=== PATIENT | male | born 1995 | race African-American/Black ===

== ENCOUNTER 2017-06-30 19:35 | Emergency (ER) | payer SELFPAY ==
[2017-06-30 20:38] LABS: ADD MAN DIFF? YES; BASO # 0.1 x10^3/uL (0.0-0.2); BASO % 1 % (0-3); EOS # 0.1 x10^3/uL (0.0-0.7); EOS % 0 % (0-3); HEMATOCRIT 45.4 % (39.0-53.0); HEMOGLOBIN 15.6 g/dL (13.0-17.5); LYMPH # 1.1 x10^3/uL (1.0-4.8); LYMPH % 7 % (24-48); MEAN CORPUSCULAR HEMOGLOBIN 31 pg (25-35); MEAN CORPUSCULAR HGB CONC 34 g/dL (31-37); MEAN CORPUSCULAR VOLUME 91 fL (79-100); MONO % 7 % (0-9); NEUT % 85 % (31-73); PLATELET COUNT 242 x10^3/uL (140-400); RED BLOOD COUNT 4.98 x10^6/uL (4.30-5.70); RED CELL DISTRIBUTION WIDTH 12.4 % (11.5-14.5); WHITE BLOOD COUNT 15.3 x10^3/uL (4.0-11.0)
[2017-06-30 20:43] LABS: ANION GAP 11 (6-14); BLOOD UREA NITROGEN 5 mg/dL (8-26); BUN/CREATININE RATIO 5 (6-20); CALCIUM 9.3 mg/dL (8.5-10.1); CARBON DIOXIDE 28 mmol/L (21-32); CHLORIDE 103 mmol/L (98-107); CREATININE 1.1 mg/dL (0.7-1.3); GFR 102.2; GLUCOSE 115 mg/dL (70-99); POTASSIUM 3.4 mmol/L (3.5-5.1); SODIUM 142 mmol/L (136-145)
[2017-06-30] MEDS: IV NORMAL SALINE 1000ML BAG 1,000 ML IV (20:46)
[2017-06-30] MEDS: ONDANSETRON PF 4 MG/2 ML VIAL. IV (20:47)
[2017-06-30] MEDS: fentaNYL PF VIAL 100 MCG/2 ML VIAL IV (20:48)
[2017-06-30] MEDS: PENICILLIN G BENZATHINE LA 1,200,000 UNIT/2 ML DISP.SYRIN. IM (20:48)
[2017-06-30 20:49] LABS: ALBUMIN 4.3 g/dL (3.4-5.0); ALBUMIN/GLOBULIN RATIO 1.2 (1.0-1.7); ALK PHOS 56 U/L (46-116); ALT (SGPT) 18 U/L (16-63); AST (SGOT) 13 U/L (15-37); TOTAL BILIRUBIN 0.5 mg/dL (0.2-1.0); TOTAL PROTEIN 7.8 g/dL (6.4-8.2)
[2017-06-30 20:52] LABS: BILIRUBIN,URINE NEGATIVE (NEG); CLARITY,URINE CLEAR; COLOR,URINE YELLOW; GLUCOSE,URINE NEGATIVE (NEG); NITRITE,URINE NEGATIVE (NEG); PH,URINE 7.5; PROTEIN,URINE NEGATIVE (NEG-TRACE)
[2017-06-30 20:57] LABS: BACTERIA,URINE 0 /HPF (0-FEW); RBC,URINE 0 /HPF (0-2); WBC,URINE OCC /HPF (0-4)
[2017-06-30 20:58] LABS: SQUAMOUS EPITHELIAL CELL,UR OCC /LPF
[2017-06-30 20:59] LABS: INFLUENZA A PATIENT NEGATIVE (NEGATIVE); INFLUENZA B PATIENT NEGATIVE (NEGATIVE); OBC FLU VALID
[2017-06-30 21:10] LABS: % ATYL 2 % (0-0); % BANDS 5 % (0-9); % EOS 1 % (0-5); % LYMPHS 1 % (24-48); % MONOS 9 % (0-10); % SEGS 82 % (35-66); PLT ESTIMATE ADEQUATE (ADEQUATE)
[2017-07-01 08:45] LABS: NEGATIVE OBC STREP NEG; POSITIVE OBC STREP POS
== END 2017-06-30 21:32 | disposition home or self-care (01) ==
LOC: ER 19:35
DX: J02.0 Streptococcal pharyngitis (principal)
CPT/HCPCS: 36415; 80053; 81001; 85007; 85025; 87804; 87804-59; 87880; 96361; 96372; 96374; 96375; 99284-25; J0561; J2405; J3010; J7030

== ENCOUNTER 2020-10-19 23:19 | Emergency (ER) | payer SELFPAY ==
[~2020-10-19] VITALS: Ht 175.3 cm; Wt 60.0 kg
[~2020-10-19 23:19] MED LIST: CIPR500T94 PO
--- NOTE | 2020-10-19 23:49 | ED.ADGEN ---
Past Medical History Past Medical History: No Pertinent History Past Surgical History: No Surgical History Smoking Status: Current Every Day Smoker Alcohol Use: Occasionally Drug Use: None General Adult EDM: Chief Complaint: MULTIPLE COMPLAINTS HPI: HPI: Patient is a 25 year old male coming in for 2 weeks of diarrhea and abdominal cramping. Is had some nausea but no vomiting denies any fevers. Has not seen his primary care doctor and has not tried any [id number] medications. Patient states he is having brown stools without any blood or mucus. Denies any known food allergies. No changes in urination. Review of Systems: Review of Systems: All other systems within normal limits except for as noted in the HPI Current Medications: Current Medications Medications (Trade) Dose Ordered Sig/Kane Start Time Stop Time Status Last Admin Dose Admin Info (CONTRAST GIVEN -- Rx MONITORING) 1 each PRN DAILY PRN 10/20/20 01:00 10/22/20 00:59 Iohexol (Omnipaque 300 Mg/ml) 75 ml 1X ONCE 10/20/20 00:45 10/20/20 00:46 DC 10/20/20 01:03 75 ML Allergies: Allergies: Allergies Coded Allergies Type Severity Reaction Last Updated Verified No Known Drug Allergies 01/13/15 No Physical Exam: PE: Constitutional: Well developed, well nourished, no acute distress, non-toxic appearance. [] HENT: Normocephalic, atraumatic, bilateral external ears normal, nose normal. [] Eyes: PERRLA, conjunctiva normal, no discharge. [] Neck: No rigidity, supple, no stridor. [] Cardiovascular: Regular rate and rhythm, brisk cap refill [] Lungs & Thorax: Non labored symmetric respirations, no tachypnea or respiratory distress [] Abdomen: Soft, nondistended, low abdominal tenderness no guarding. Skin: Warm, dry, no erythema, no rash. [] Back: Unremarkable Extremities: No deformities, range of motion grossly intact, no lower extremity edema [] Neurologic: Alert and oriented X 3, no focal deficits noted. [] Psychologic: Affect normal, judgement normal, mood normal. [] Current Patient Data: Labs: Laboratory Tests Test 10/20/20 00:05 White Blood Count 8.6 x10^3/uL (4.0-11.0) Red Blood Count 4.62 x10^6/uL (4.30-5.70) Hemoglobin 14.6 g/dL (13.0-17.5) Hematocrit 43.0 % (39.0-53.0) Mean Corpuscular Volume 93 fL (79-100) Mean Corpuscular Hemoglobin 32 pg (25-35) Mean Corpuscular Hemoglobin Concent 34 g/dL (31-37) Red Cell Distribution Width 12.7 % (11.5-14.5) Platelet Count 238 x10^3/uL (140-400) Neutrophils (%) (Auto) 51 % (31-73) Lymphocytes (%) (Auto) 34 % (24-48) Monocytes (%) (Auto) 8 % (0-9) Eosinophils (%) (Auto) 6 % (0-3) H Basophils (%) (Auto) 1 % (0-3) Neutrophils # (Auto) 4.4 x10^3/uL (1.8-7.7) Lymphocytes # (Auto) 2.9 x10^3/uL (1.0-4.8) Monocytes # (Auto) 0.7 x10^3/uL (0.0-1.1) Eosinophils # (Auto) 0.5 x10^3/uL (0.0-0.7) Basophils # (Auto) 0.1 x10^3/uL (0.0-0.2) Urine Collection Type Unknown Urine Color Yellow Urine Clarity Cloudy Urine pH 7.0 (<5.0-8.0) Urine Specific [place] 1.025 (1.000-1.030) Urine Protein Negative mg/dL (NEG-TRACE) Urine Glucose (UA) Negative mg/dL (NEG) Urine Ketones (Stick) Negative mg/dL (NEG) Urine Blood Negative (NEG) Urine Nitrite Negative (NEG) Urine Bilirubin Negative (NEG) Urine Urobilinogen Dipstick 1.0 mg/dL (0.2 mg/dL) Urine Leukocyte Esterase Trace (NEG) Urine RBC 0 /HPF (0-2) Urine WBC 5-10 /HPF (0-4) Urine Squamous Epithelial Cells Occ /LPF Urine Amorphous Sediment Present /HPF Urine Bacteria 0 /HPF (0-FEW) Urine Mucus Mod /LPF Sodium Level 144 mmol/L (136-145) Potassium Level 4.5 mmol/L (3.5-5.1) Chloride Level 107 mmol/L (98-107) Carbon Dioxide Level 32 mmol/L (21-32) Anion Gap 5 (6-14) L Blood Urea Nitrogen 16 mg/dL (8-26) Creatinine 1.1 mg/dL (0.7-1.3) Estimated GFR (Cockcroft-Gault) 99.5 BUN/Creatinine Ratio 15 (6-20) Glucose Level 93 mg/dL (70-99) Calcium Level 9.2 mg/dL (8.5-10.1) Total Bilirubin 0.3 mg/dL (0.2-1.0) Aspartate Amino Transferase (AST) 17 U/L (15-37) Alanine Aminotransferase (ALT) 26 U/L (16-63) Alkaline Phosphatase 54 U/L (46-116) Total Protein 7.0 g/dL (6.4-8.2) Albumin 3.8 g/dL (3.4-5.0) Albumin/Globulin Ratio 1.2 (1.0-1.7) Lipase 71 U/L (73-393) L Laboratory Tests 10/20/20 00:05 Laboratory Tests 10/20/20 00:05 Vital Signs: Vital Signs Date Time Temp Pulse Resp B/P (MAP) Pulse Ox O2 Delivery O2 Flow Rate FiO2 10/20/20 01:09 62 18 128/70 (89) 98 Room Air 10/19/20 23:20 98.6 98.6 EKG: EKG: [] Heart Score: C/O Chest Pain: No Risk Factors: Risk Factors: DM, Current or recent (<one month) smoker, HTN, HLP, family history of CAD, obesity. Risk Scores: Score 0 - 3: 2.5% MACE over next 6 weeks - Discharge Home Score 4 - 6: 20.3% MACE over next 6 weeks - Admit for Clinical Observation Score 7 - 10: 72.7% MACE over next 6 weeks - Early Invasive Strategies Radiology/Procedures: Radiology/Procedures: [][facility] [address] [place] [address] IMAGING REPORT Signed PATIENT: YOLANDA CERVANTES ACCOUNT: [id number] : 07/20/1957 LOCATION: ER AGE: 63 SEX: F EXAM STATUS: REG ER ORD. PHYSICIAN: OSCAR PRINCE MD REASON: left flank pain, stone study, hematuria PROCEDURE: CT ABDOMEN PELVIS WO CONTRAST INDICATION: Reason: left flank pain, stone study, hematuria / Spl. Instructions: / History: . COMPARISON: None. TECHNIQUE: Axial CT images obtained through the abdomen and pelvis without contrast. One or more of the following individualized dose reduction techniques were utilized for this examination: 1. Automated exposure control; 2. Adjustment of the mA and/or kV according to patient size; 3. Use of iterative reconstruction technique. FINDINGS: Gastric band. Calcific atherosclerosis. Urinary bladder is well distended. Liver is low density. Nonspecific but can be seen with fatty infiltration. Prom inent in size. There is some heterogeneity within with a relative higher density region within the right lobe inferiorly measuring up to 3 cm. No peripancreatic fluid collection. Spleen unremarkable. Mild left-sided hydronephrosis and hydroureter with suspected 5 mm left distal ureter stone. Uterus is visualized. Mild prominence right extrarenal pelvis. Suspected high density lesion right kidney measuring approximately 12 mm. Colonic diverticulosis. No periappendiceal inflammatory changes. No dilated loops of bowel to suggest obstruction. There are some prominent lymph nodes at the right side of the abdomen. Degenerative changes of the spine with multilevel central canal and neural foraminal stenosis. Degenerative changes the hips. IMPRESSION: * Left-sided hydronephrosis with distal ureter stone. There are additional nonobstructive left renal stones. * High density right renal lesion. Most commonly from causes such as hemorrhagic cyst but nonemergent ultrasound could further evaluate. * Liver is low density which can be seen with fatty infiltration. * Relative high density region within the right lobe the liver which could be from focal fatty sparing but may be helpful to obtain a follow-up nonemergent CT or MRI liver protocol to ensure there is not a lesion in the area. Electronically signed by: Mikaela Story MD (10/20/2020 1:23 AM) [id number] DICTATED and SIGNED BY: MIKAELA STORY MD DATE: 10/20/20 [id number] Course & Med Decision Making: Course & Med Decision Making Pertinent Labs and Imaging studies reviewed. (See chart for details) [] Dragon Disclaimer: Dragon Disclaimer: This electronic medical record was generated, in whole or in part, using a voice recognition dictation system. Departure Departure Impression: Primary Impression: Loose stools Disposition: HOME / SELF CARE / HOMELESS Condition: STABLE Referrals: NO PCP (PCP) Patient Instructions: Diet for Diarrhea, Adult Additional Instructions: Your stool study is pending and will be resulted in 1 to 3 days, you will be called if any positive results. Use soluble fiber supplements and probiotics to help slow bowel movements. Scripts Ondansetron (ONDANSETRON ODT) 4 Mg Tab.rapdis 1 TAB PO PRN Q6-8HRS PRN for NAUSEA for 3 Days, #10 TAB Prov: OSCAR PRINCE MD 10/20/20 OSCAR PRINCE MD Oct 19, 2020 23:49
[2020-10-20 00:20] LABS: BASO # 0.1 x10^3/uL (0.0-0.2); BASO % 1 % (0-3); BILIRUBIN,URINE NEGATIVE (NEG); CLARITY,URINE CLOUDY; COLOR,URINE YELLOW; EOS # 0.5 x10^3/uL (0.0-0.7); EOS % 6 % (0-3); HEMOGLOBIN 14.6 g/dL (13.0-17.5); LYMPH # 2.9 x10^3/uL (1.0-4.8); LYMPH % 34 % (24-48); MEAN CORPUSCULAR HEMOGLOBIN 32 pg (25-35); MEAN CORPUSCULAR HGB CONC 34 g/dL (31-37); MEAN CORPUSCULAR VOLUME 93 fL (79-100); MONO # 0.7 x10^3/uL (0.0-1.1); MONO % 8 % (0-9); NEUT # 4.4 x10^3/uL (1.8-7.7); NEUT % 51 % (31-73); NITRITE,URINE NEGATIVE (NEG); PLATELET COUNT 238 x10^3/uL (140-400); PROTEIN,URINE NEGATIVE (NEG-TRACE); RED BLOOD COUNT 4.62 x10^6/uL (4.30-5.70); RED CELL DISTRIBUTION WIDTH 12.7 % (11.5-14.5); WHITE BLOOD COUNT 8.6 x10^3/uL (4.0-11.0)
[2020-10-20 00:29] LABS: CALCIUM 9.2 mg/dL (8.5-10.1); CREATININE 1.1 mg/dL (0.7-1.3); GFR 99.5; POTASSIUM 4.5 mmol/L (3.5-5.1)
[2020-10-20 00:34] LABS: RBC,URINE 0 /HPF (0-2)
[2020-10-20 00:35] LABS: ALBUMIN 3.8 g/dL (3.4-5.0); ALBUMIN/GLOBULIN RATIO 1.2 (1.0-1.7); BACTERIA,URINE 0 /HPF (0-FEW); TOTAL BILIRUBIN 0.3 mg/dL (0.2-1.0)
[2020-10-20 00:36] LABS: AMORPHOUS SEDIMENT,UR PRESENT /HPF
[2020-10-20] MEDS ORDERED: IOHEXOL 300 MG/ML 100ML VIAL. IV ONE (00:45)
[2020-10-20] MEDS ORDERED: CONTRAST GIVEN. MC PRN (01:00)
--- NOTE | 2020-10-20 01:53 | RAD ---
INDICATION: Reason: Low abd pain / Spl. Instructions: / History: . COMPARISON: None. TECHNIQUE: Axial CT images obtained through the abdomen and pelvis with contrast. One or more of the following individualized dose reduction techniques were utilized for this examinat ion: 1. Automated exposure control; 2. Adjustment of the mA and/or kV according to patient size; 3 . Use of iterative reconstruction technique. FINDINGS: Abdominal aorta is not aneurysmal. Gallbladder is contracted. No intrahepatic bile duct dilation. No peripancreatic fluid collection. Calcified granulomas of the spleen. No hydronephrosis. Urinary bladder is partially distended. The suspected appendix does not have adjacent inflammatory changes. No dilated loops of bowel to sugg est obstruction. IMPRESSION: * No evidence of bowel obstruction or appendicitis Electronically signed by: Chris Story MD (10/20/2020 1:50 AM) [id number]
[2020-10-20] MEDS ORDERED: ONDA4TAB12 PO (02:12)
[2020-10-20 02:33] VITALS: BP 132/70
== END 2020-10-20 02:34 | disposition home or self-care (01) ==
LOC: ER 23:19
DX: R19.7 Diarrhea, unspecified (principal); R10.30 Lower abdominal pain, unspecified; R11.0 Nausea; F17.200 Nicotine dependence, unspecified, uncomplicated
CPT/HCPCS: 36415; 74177; 80053; 81001; 83690; 85025; 87086; 87505; 99285; Q9967